=== PATIENT | female | born 1970 | race Caucasian/White ===

== ENCOUNTER → 2017-02-25 | Outpatient (REF) | payer BC, OTHER | LOC: M LAB REF 17:32 | PROVIDERS: ATTEND Physician Assistant Medical | DX: B37.3 Candidiasis of vulva and vagina (principal) ==

== ENCOUNTER → 2017-05-09 | Outpatient (CLI) | payer BC, OTHER ==
--- NOTE | 2017-05-09 11:36 | REP ---
Clinical: Chest pain . Comparison: 11/18/2014 . Technique: PA and lateral. Findings: The mediastinum and cardiac silhouette are normal. The lung hall are clear and without acute consolidation, effusion, or pneumothorax. The skeletal structures are intact and normal. Impression: 1. No acute cardiopulmonary process. Signed by Antonio Barnett MD 05/09/2017 11:28 A
== END ==
LOC: M LRY 11:08
PROVIDERS: ATTEND Nurse Practitioner Family
DX: R07.9 Chest pain, unspecified (principal)